=== PATIENT | female | born 1975 | race Caucasian/White ===

== ENCOUNTER 2019-10-11 10:13 | Emergency (ER) | payer OTHER ==
[~2019-10-11] VITALS: Ht 170.2 cm; Wt 64.7 kg
[2019-10-11 10:27] VITALS: BP 138/93
[2019-10-11] MEDS ORDERED: HYDR-3165 PO (10:52)
[2019-10-11] MEDS ORDERED: ONDA4TAB12 PO (10:53)
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
--- NOTE | 2019-10-11 11:27 | RAD ---
Study: FINGER(S) LEFT Indication: Status post reduction and splinting. Comparison: 10/11/2019 at 1038 hours. Findings: Redemonstrated spiral fracture of the ring finger proximal phalanx. Persistent but slightly less pronounced displacement from the prior. Impression: Persistent displacement but to a slightly lesser degree of the extra-articular spiral fracture of the ring finger proximal phalanx. Electronically signed by: MILE MESA MD (10/11/2019 11:24 AM) [facility]
[2019-10-11] MEDS ORDERED: HYDROcodone/APAP 5/325MG 1 TAB TABLET PO ONE (11:30)
[2019-10-11] MEDS ORDERED: HYDROcodone/APAP 5/325MG 1 TAB TABLET ONE (11:35)
== END 2019-10-11 11:36 | disposition home or self-care (01) ==
LOC: ER 10:13
DX: S62.615A Displaced fracture of proximal phalanx of left ring finger, initial encounter for closed fracture (principal); Z88.5 Allergy status to narcotic agent; X50.1XXA Overexertion from prolonged static or awkward postures, initial encounter; Y93.89 Activity, other specified; Y92.89 Other specified places as the place of occurrence of the external cause; Y99.8 Other external cause status
CPT/HCPCS: 29130; 73140; 99283